=== PATIENT | female | born 1995 | race Caucasian/White ===

== ENCOUNTER 2017-11-28 09:04 | Emergency (ER) | payer OTHER ==
[~2017-11-28] VITALS: Ht 162.6 cm; Wt 47.2 kg
[2017-11-28 09:10] VITALS: BP 113/70
--- NOTE | 2017-11-28 09:19 | NUR ---
PT AMBULATED TO ER BED 08
--- NOTE | 2017-11-28 09:47 | NUR ---
PATIENT CAME IN WITH TO THE ER WITH COMPLAINTS OF FLUID LEAKAGE FROM HER VAGINA. PT IS 13 WEEKS PREGNENAT. LAST MENSTRAL WAS AUGUST 23, 2017. SHE IS . PT HAS NO COMPLAINT OF PAIN OR VAGINAL BLEEDING. pT STATES SHE FELT A GUSH OF FLUID COME OUT WHILE SHE USED THE RESTROOM. SHE ALSO OBSERVED A WET STAIN ON HER BED WHEN SHE WOKE UP FOR 2 DAYS. PATIENT DENIES ANY RECREATIONAL DRUG USE. PATIENT IS ALLERGIC TO [facility] DRUGS AND HAS NO MEDICAL HISTORY. SHE SAW HER OB ONE WEEK AGO AND HAD AN ULTRASOUND DURING THAT VISIT. EXPECTED DUE DATE IS MAY 30, 2018.
[2017-11-28 09:53] LABS: BASOPHILS % (AUTO) 0.4 % (0.0-2.0); HEMATOCRIT 31.8 % (36-48); HEMOGLOBIN 10.3 g/dL (12.0-16.0); LYMPHOCYTES # (AUTO) 1.1 K/uL (2.5-16.5); LYMPHOCYTES % (AUTO) 14.8 % (20.5-51.1); MEAN CORPUSCULAR HEMOGLOBIN 27 pg (27-31); MEAN CORPUSCULAR HGB CONC 32 g/dL (33-37); MEAN CORPUSCULAR VOLUME 82.2 fL (80-94); MONOCYTES # (AUTO) 0.5 K/uL (0.8-1.0); MONOCYTES % (AUTO) 6.2 % (1.7-9.3); NEUTROPHILS % (AUTO) 78.6 % (42.2-75.2); PLATELET COUNT (AUTO) 134 K/uL (140-450); RED BLOOD CELL COUNT(AUTO) 3.86 MIL/uL (4.20-5.40); RED CELL DISTRIBUTION WIDTH 19.7 % (11.6-13.7); WHITE BLOOD COUNT (AUTO) 7.6 K/uL (4.8-10.8)
[2017-11-28 10:34] LABS: BILIRUBIN,URINE NEGATIVE (NEGATIVE); BLOOD, URINE TRACE-I (NEGATIVE); COLOR,URINE YELLOW (YELLOW); LEUKOCYTE ESTERASE ,URINE NEGATIVE (NEGATIVE); NITRITE, URINE NEGATIVE (NEGATIVE); UGLUCOSE NEGATIVE (NEGATIVE)
[2017-11-28 10:35] VITALS: BP 113/68
--- NOTE | 2017-11-28 10:36 | NUR ---
patient was sent home with in literature on 2 trimester that was given by the MD. patient understood the information that was given. vitals were normal upon discharge. patient was ambulatory. pateint was by herself at discharge. pateint understood to follow up with her OB marnie week. no medication prescription was given at discharge.
[2017-11-28 10:45] LABS: RBC,URINE 0-5 (RARE) /HPF (0-5); WBC,URINE NONE SEEN /HPF (0-5)
[2017-11-28 10:46] LABS: APPEARANCE,URINE SLIGHTLY HAZY (CLEAR)
[2017-12-01 06:15] LABS: CHLAMYDIA TRACHOMATIS AMP DNA Negative (Negative)
== END 2017-11-28 10:36 | disposition home or self-care (01) ==
LOC: MED 09:04
DX: O26.891 Other specified pregnancy related conditions, first trimester (principal); N89.8 Other specified noninflammatory disorders of vagina; Z3A.12 12 weeks gestation of pregnancy; Z88.2 Allergy status to sulfonamides
CPT/HCPCS: 36415; 76817; 81001; 81025; 84702; 85025; 86900; 86901; 87210; 99285; Q0092; 87491